=== PATIENT | female | born 1970 | race African-American/Black ===

== ENCOUNTER 2019-10-30 15:30 | Inpatient (IN) | payer OTHER ==
[2019-10-30 19:16] VITALS: BMI 36.6
--- NOTE | 2019-10-30 20:14 | HP ---
CIWA Score - Admission Criteria OASAS Guidelines: Admission for Medically Managed Detox: Requires at least one of the followin. CIWA greater than 12 2. Seizures within the past 24 hours 3. Delirium tremens within the past 24 hours 4. Hallucinations within the past 24 hours 5. Acute intervention needed for co occurring medical disorder 6. Acute intervention needed for co occurring psychiatric disorder 7. Severe withdrawal that cannot be handled at a lower level of care (continued vomiting, continued diarrhea, abnormal vital signs) requiring intravenous medication and/or fluids 8. Admitting History and Physical - Past Medical History ...LMP: 07/28/16 ...: No - Smoking History Smoking history: Current every day smoker Have you smoked in the past 12 months: Yes Aproximately how many cigarettes per day: 5 - Alcohol/Substance Use Hx Alcohol Use: Yes (reports drinking since 15 yo,1/2 pint of vodka,6 packs of 12 oz beer daily) Admission [facility] Chief Complaint: here for rehab from alcohol and crack use Allergies/Adverse Reactions: Allergies Allergy/AdvReac Type Severity Reaction Status Date / Time No Known Allergies Allergy Verified 10/30/19 19:05 History of Present Illness: 49 yo with h/o depression, bipolar and glaucoma completed detox at [facility] and was at [facility] left [place] about 1 week ago for an eye doctor appointment. She is here to complete rehab. Pt states she has not being using alcohol or other illicit drugs since leaving detox. PCP and MH- [facility] [address] Lives in [place] with mother. Does not work- on disability for glaucoma alcohol- was using 10 cans of beer/day crack- $60-70/day Utocx- pos for BZO DUR- no recent meds - Ebola screening Have you traveled outside of the country in the last 21 days: No Have you had contact with anyone from an Ebola affected area: No Have you been sick,other than usual withdrawal symptoms: No Do you have a fever: No - Review of Systems Constitutional: No Symptoms Reported EENT: reports: No Symptoms Reported Respiratory: reports: No Symptoms reported Cardiac: reports: No Symptoms Reported GI: reports: No Symptoms Reported : reports: No Symptoms Reported Musculoskeletal: reports: No Symptoms Reported Integumentary: reports: No Symptoms Reported Neuro: reports: No Symptoms reported Endocrine: reports: No Symptoms Reported Hematology: reports: No Symptoms Reported Psychiatric: reports: No Sypmtoms Reported Other Systems: Reviewed and Negative Patient History - Patient Medical History Hx Anemia: No Hx Asthma: No Hx Chronic Obstructive Pulmonary Disease (COPD): No Hx Cancer: No Hx Cardiac Disorders: No Hx Congestive Heart Failure: No Hx Hypertension: No Hx Hypercholesterolemia: No Hx Pacemaker: No HX Cerebrovascular Accident: No Hx Seizures: No Hx Dementia: No Hx Diabetes: No Hx Gastrointestinal Disorders: No Hx Liver Disease: No Hx Genitourinary Disorders: No Hx Sexually Transmitted Disorders: No Hx Renal Disease (ESRD): No Hx Thyroid Disease: No Hx Human Immunodeficiency Virus (HIV): No (last 08/05 nrgative) Hx Hepatitis C: No Hx Depression: Yes Hx Suicide Attempt: No Hx Bipolar Disorder: Yes Hx Schizophrenia: No Other Medical History: glaucoma - Patient Surgical History Past Surgical History: No Hx Neurologic Surgery: No Hx Cataract Extraction: No Hx Cardiac Surgery: No Hx Lung Surgery: No Hx Breast Surgery: No Hx Breast Biopsy: No Hx Abdominal Surgery: No Hx Appendectomy: No Hx Cholecystectomy: No Hx Genitourinary Surgery: No Hx Section: No Hx Orthopedic Surgery: Yes (arthrosopic surgery of right and left knee ) Other Surgical History: Glaucoma 2014 Anesthesia Reaction: No - PPD History Previous Implant?: Yes Documented Results: Negative w/o proof Date: 08/08/16 - Reproductive History Last Menstrual Period: 07/28/16 Patient : No - Smoking Cessation Smoking history: Current every day smoker Have you smoked in the past 12 months: Yes Aproximately how many cigarettes per day: 5 Cigars Per Day: 0 Hx Chewing Tobacco Use: No Initiated information on smoking cessation: Yes 'Breaking Loose' booklet given: 10/30/19 - Substances abused Alcohol Substance route: Oral Frequency: Daily Amount used: 7 (16oz) cans Age of first use: 13 Date of last use: 10/02/19 Crack Substance route: Smoking Frequency: Daily Amount used: $70 Age of first use: 28 Date of last use: 10/02/19 Admission Physical Exam BHS - Vital Signs Vital Signs: Vital Signs - 24 hr 10/30/19 19:13 Temperature 98.0 F Pulse Rate 67 Respiratory 16 Rate Blood Pressure 141/95 - Physical General Appearance: Yes: Within Normal Limits, Other HEENTM: Yes: Within Normal Limits, NICOLASA, Pharynx Normal Respiratory: Yes: Within Normal Limits, Lungs Clear Neck: Yes: Within Normal Limits Cardiology: Yes: Within Normal Limits, Regular Rhythm, Regular Rate Abdominal: Yes: Within Normal Limits, Protuberent Back: Yes: Within Normal Limits, Normal Inspection Musculoskeletal: Yes: Within Normal Limits, full range of Motion Extremities: Yes: Within Normal Limits, Normal Capillary Refill Neurological: Yes: Within Normal Limits, court commissioner II-XII NML intact, Fully Oriented Integumentary: Yes: Within Normal Limits, Normal Color Lymphatic: Yes: Within Normal Limits - Diagnostic (1) Bipolar 1 disorder Current Visit: Yes Status: Acute (2) Depression Current Visit: No Status: Acute (3) Alcohol dependence Current Visit: No Status: Chronic (4) Cocaine dependence Current Visit: No Status: Chronic (5) Glaucoma Current Visit: No Status: Chronic Breathalyzer - Breathalyzer Breathalyzer: 0 Urine Drug Screen - Test Device Lot number: [id number] Expiration date: 08/19/21 - Control Is test valid?: Yes - Results Drug screen NEGATIVE: No Urine drug screen results: BZO-Benzodiazepines Inpatient Rehab Admission - Rehab Decision to Admit Inpatient rehab admission?: Yes - Initial Determination Are CD services needed?: Yes Free of communicable disease: Yes Not in need of hospitalization: Yes - Rehab Admission Criteria Previous failed treatment: Yes Poor recovery environment: Yes Comorbidities: Yes Lacks judgement: Yes Patient is meeting Inpatient Rehab admission criteria:: Yes (completed detox)
[2019-10-30] MEDS ORDERED: P-EPHED 60MG/TRIPROLIDI 2.5MG TABLET PO PRN (20:21)
[2019-10-30] MEDS ORDERED: MENTHOL/PHENOL 1 EACH UD MM PRN (20:21)
[2019-10-30] MEDS ORDERED: hydrOXYzine PAMOATE 25 MG CAPSULE (FP) PO PRN (20:21)
[2019-10-30] MEDS ORDERED: NICOTINE POLACRILEX 2 MG GUM BC PRN (20:21)
[2019-10-30] MEDS ORDERED: guaiFENesin 200 MG/10 ML 10 ML UNIT-DOSE CUPS PO PRN (20:21)
[2019-10-30] MEDS ORDERED: LOPERAMIDE HCL 2 MG CAPSULE PO PRN (20:21)
[2019-10-30] MEDS ORDERED: ACETAMINOPHEN 325 MG TABLET (FP) PO PRN (20:21)
[2019-10-30] MEDS ORDERED: IBUPROFEN 400 MG TABLET (FP) PO PRN (20:21)
[2019-10-30] MEDS ORDERED: MAGNESIUM CITRATE 300 ML BOTTLE PO PRN (20:21)
[2019-10-30] MEDS ORDERED: MAG HYDROX/AL HYDROX/SIMETH 30 ML UNIT-DOSE CUP PO PRN (20:21)
[2019-10-30] MEDS ORDERED: MAGNESIUM HYDROX 2400MG/30ML ORAL SUSPENSION 30 ML CUP PO PRN (20:21)
[2019-10-30] MEDS ORDERED: LATANOPROST 0.005% OPHTH SOLN 2.5ML BOTTLE OU SCH (22:00)
[2019-10-30] MEDS ORDERED: QUEtiapine FUMARATE 100 MG TABLET (FP) PO SCH (22:00)
[2019-10-30] MEDS: THIAMINE HCL 100 MG TABLET (FP) PO SCH (22:38)
[2019-10-30] MEDS: PATIENT'S OWN MEDICATION (NON-FORMULARY) (Dorzolamide Hcl/Timolol Maleat [Cosopt Eye Drops OU SCH (22:45)
[2019-10-30] MEDS: NETARSUDIL MESYLATE OU SCH (22:46)
[2019-10-31] MEDS: BRIMONIDINE TARTRATE 0.1% OPHTHALMIC 5 ML BOTTLE OU SCH ×2 (00:07→06:59)
[2019-10-31] MEDS: PRENATAL VITAMINS W/ FOLIC ACID TABLET (FP) PO SCH (09:46)
[2019-10-31] MEDS ORDERED: ESCITALOPRAM OXALATE 20 MG TABLET PO SCH (10:00)
[2019-10-31] MEDS ORDERED: DIVALPROEX SODIUM 500 MG TABLET E.C. PO SCH (10:00)
[2019-10-31] MEDS ORDERED: COLLOIDAL OATMEAL 1 BAR EACH TP PRN (10:11)
--- NOTE | 2019-10-31 10:11 | PN ---
S Progress Note (SOAP) Subjective: patient admitted to rehab last night (10/30/2019). Requesting something for dry skin. PMHx;49 yo with h/o depression, bipolar and glaucoma completed detox at [facility] and was at [facility] rehab left [place] about 1 week ago for an eye doctor appointment. She is here to complete rehab. Pt states she has not being using alcohol or other illicit drugs since leaving detox. PCP and - [facility] [address] Lives in [place] with mother. Does not work- on disability for glaucoma alcohol- was using 10 cans of beer/day crack- $60-70/day Objective: General: no apparent distress HEENTM: normocephalic, dentures Neck: supple Lungs: clear Heart: s1 s2 ABD: +BS MSK: full weight bearing, steady gait. 10/31/19 10:08 Assessment: Admitted for rehab treatment for ETOH and crack cocaine. Dry skin On Depakote 10/31/19 10:08 Plan: Reviewed medication list with patient, reviewed problem list, reviewed previous admission. Rehab from cocaine and ETOH maintain safety Ordered Aveeno soap and lac-hydrin Ordered Depakote level
[2019-10-31] MEDS: PATIENT'S OWN MEDICATION (NON-FORMULARY) (Dorzolamide Hcl/Timolol Maleat [Cosopt Eye Drops OU SCH ×2 (10:37→15:45)
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
[2019-10-31] MEDS ORDERED: PT OWN MED DRAWER 7, Y5N ONE ×5 (11:30→19:27)
--- NOTE | 2019-10-31 13:04 | EKG ---
Test Reason : Blood Pressure : / mmHG Vent. Rate : 065 BPM Atrial Rate : 065 BPM P-R Int : 152 ms QRS Dur : 086 ms QT Int : 408 ms P-R-T Axes : 027 051 051 degrees QTc Int : 424 ms NORMAL SINUS RHYTHM NORMAL ECG NO PREVIOUS ECGS AVAILABLE Confirmed by Alexys Torres MD ([id number]) on 10/31/2019 1:04:32 PM Referred By: Confirmed By:Alexys Torres MD
[2019-10-31] MEDS ORDERED: BRIMONIDINE TARTRATE OU SCH (14:00)
[2019-10-31] MEDS: AMMONIUM LACTATE 12% LOTION 225 GM BOTTLE TP PRN (15:46)
[2019-10-31 20:27] LABS: HEMATOCRIT 40.4 % (32.4-45.2); HEMOGLOBIN 12.9 GM/dL (10.7-15.3); MCH 25.8 pg (25.7-33.7); MEAN CELL VOLUME 80.6 fl (80-96); MEAN PLT VOLUME 8.7 fl (7.5-11.1); PLATELET COUNT 260 K/MM3 (134-434); RBC 5.01 M/mm3 (3.60-5.2); RDW 16.5 % (11.6-15.6); WHITE BLOOD COUNT 11.6 K/mm3 (4.0-10.0)
[2019-10-31 20:30] LABS: ALBUMIN 3.8 g/dl (3.4-5.0); BILIRUBIN,TOTAL 0.2 mg/dL (0.2-1); BLOOD UREA NITROGEN 13.7 mg/dL (7-18); CALCIUM 8.6 mg/dL (8.5-10.1); POTASSIUM 4.1 mmol/L (3.5-5.1); TOT PROT 7.2 g/dl (6.4-8.2)
[2019-10-31] MEDS: THIAMINE HCL 100 MG TABLET (FP) PO SCH (21:28)
[2019-10-31] MEDS: QUEtiapine FUMARATE 300 MG TABLET PO SCH (21:28)
[2019-10-31] MEDS: NETARSUDIL MESYLATE OU SCH (21:29)
[2019-10-31] MEDS: BRIMONIDINE TARTRATE 0.2% OPHTHALMIC 5 ML BOTTLE OU SCH (21:30)
[2019-10-31] MEDS: LATANOPROST 0.005% OPHTH SOLN 2.5ML BOTTLE OU SCH (21:33)
[2019-10-31 21:50] LABS: EPI CELLS 6.5 /HPF (0-5/HPF); HYALINE CASTS 7 /lpf (0-8); PH,URINE 5.5 (5.0-8.0); URINE APPEARANCE CLEAR; URINE BACTERIA 74.2 /hpf (NEGATIVE); URINE BILIRUBIN NEGATIVE (NEGATIVE); URINE COLOR YELLOW; URINE GLUCOSE (UA) NEGATIVE (NEGATIVE); URINE KETONE NEGATIVE (NEGATIVE); URINE LEUK ESTERASE 2+ (NEGATIVE); URINE NITRITE NEGATIVE (NEGATIVE); URINE PROTEIN NEGATIVE (NEGATIVE); URINE RBC 5 /hpf (0-4); URINE UROBILINOGEN 0.2 mg/dL (0.2-1.0); URINE WBC 37 /hpf (0-5)
[2019-11-01] MEDS ORDERED: DIVALPROEX NA *ER* EXTEND REL 500 MG TABLET.SA (FP) PO SCH (10:00)
[2019-11-01] MEDS: BRIMONIDINE TARTRATE 0.2% OPHTHALMIC 5 ML BOTTLE OU SCH ×3 (10:05→21:22)
[2019-11-01] MEDS: PATIENT'S OWN MEDICATION (NON-FORMULARY) (Dorzolamide Hcl/Timolol Maleat [Cosopt Eye Drops OU SCH ×2 (10:06→13:53)
[2019-11-01] MEDS: PRENATAL VITAMINS W/ FOLIC ACID TABLET (FP) PO SCH (10:07)
[2019-11-01] MEDS: ESCITALOPRAM OXALATE 20 MG TABLET PO SCH (10:07)
--- NOTE | 2019-11-01 13:26 | PN ---
[facility] Progress Note Note: Patient's Valproic serum level is 4.2. She is currently on depakote 500 mg/hs started a week prior to this admission while in inpatient rehab [facility]. Depakote ER dosage will be increased to 1000 mg/hs
[2019-11-01] MEDS ORDERED: PT OWN MED DRAWER 7, Y5N ONE (13:56)
[2019-11-01] MEDS: LATANOPROST 0.005% OPHTH SOLN 2.5ML BOTTLE OU SCH (21:22)
[2019-11-01] MEDS: NETARSUDIL MESYLATE OU SCH (21:23)
[2019-11-01] MEDS: THIAMINE HCL 100 MG TABLET (FP) PO SCH (21:23)
[2019-11-01] MEDS: DIVALPROEX NA *ER* EXTEND REL 500 MG TABLET.SA (FP) PO SCH (21:23)
[2019-11-01] MEDS: QUEtiapine FUMARATE 300 MG TABLET PO SCH (21:23)
[2019-11-02] MEDS: BRIMONIDINE TARTRATE 0.2% OPHTHALMIC 5 ML BOTTLE OU SCH ×3 (10:06→21:18)
[2019-11-02] MEDS: ESCITALOPRAM OXALATE 20 MG TABLET PO SCH (10:07)
[2019-11-02] MEDS: PATIENT'S OWN MEDICATION (NON-FORMULARY) (Dorzolamide Hcl/Timolol Maleat [Cosopt Eye Drops OU SCH ×2 (10:07→14:06)
[2019-11-02] MEDS: PRENATAL VITAMINS W/ FOLIC ACID TABLET (FP) PO SCH (10:07)
[2019-11-02] MEDS: AMMONIUM LACTATE 12% LOTION 225 GM BOTTLE TP PRN (10:08)
[2019-11-02] MEDS ORDERED: PT OWN MED DRAWER 7, Y5N ONE ×2 (10:08→14:13)
[2019-11-02] MEDS: DIVALPROEX NA *ER* EXTEND REL 500 MG TABLET.SA (FP) PO SCH (21:18)
[2019-11-02] MEDS: NETARSUDIL MESYLATE OU SCH (21:19)
[2019-11-02] MEDS: THIAMINE HCL 100 MG TABLET (FP) PO SCH (21:19)
[2019-11-02] MEDS: QUEtiapine FUMARATE 300 MG TABLET PO SCH (21:20)
[2019-11-02] MEDS: LATANOPROST 0.005% OPHTH SOLN 2.5ML BOTTLE OU SCH (21:20)
[2019-11-03] MEDS: ESCITALOPRAM OXALATE 20 MG TABLET PO SCH (09:40)
[2019-11-03] MEDS: BRIMONIDINE TARTRATE 0.2% OPHTHALMIC 5 ML BOTTLE OU SCH ×3 (09:40→21:31)
[2019-11-03] MEDS: PRENATAL VITAMINS W/ FOLIC ACID TABLET (FP) PO SCH (09:40)
[2019-11-03] MEDS: PATIENT'S OWN MEDICATION (NON-FORMULARY) (Dorzolamide Hcl/Timolol Maleat [Cosopt Eye Drops OU SCH ×2 (09:41→13:14)
[2019-11-03] MEDS ORDERED: PT OWN MED DRAWER 7, Y5N ONE ×2 (13:08→15:21)
[2019-11-03] MEDS: NETARSUDIL MESYLATE OU SCH (21:31)
[2019-11-03] MEDS: THIAMINE HCL 100 MG TABLET (FP) PO SCH (21:33)
[2019-11-03] MEDS: LATANOPROST 0.005% OPHTH SOLN 2.5ML BOTTLE OU SCH (21:33)
[2019-11-03] MEDS: QUEtiapine FUMARATE 300 MG TABLET PO SCH (21:34)
[2019-11-03] MEDS: DIVALPROEX NA *ER* EXTEND REL 500 MG TABLET.SA (FP) PO SCH (21:34)
[2019-11-04] MEDS ORDERED: PT OWN MED DRAWER 7, Y5N ONE ×3 (09:23→19:27)
[2019-11-04] MEDS: BRIMONIDINE TARTRATE 0.2% OPHTHALMIC 5 ML BOTTLE OU SCH ×3 (10:29→21:03)
[2019-11-04] MEDS: PATIENT'S OWN MEDICATION (NON-FORMULARY) (Dorzolamide Hcl/Timolol Maleat [Cosopt Eye Drops OU SCH ×2 (10:30→13:43)
[2019-11-04] MEDS: ESCITALOPRAM OXALATE 20 MG TABLET PO SCH (10:30)
[2019-11-04] MEDS: PRENATAL VITAMINS W/ FOLIC ACID TABLET (FP) PO SCH (10:30)
[2019-11-04] MEDS: NETARSUDIL MESYLATE OU SCH (21:02)
[2019-11-04] MEDS: LATANOPROST 0.005% OPHTH SOLN 2.5ML BOTTLE OU SCH (21:03)
[2019-11-04] MEDS: THIAMINE HCL 100 MG TABLET (FP) PO SCH (21:03)
[2019-11-04] MEDS: DIVALPROEX NA *ER* EXTEND REL 500 MG TABLET.SA (FP) PO SCH (21:04)
[2019-11-04] MEDS: QUEtiapine FUMARATE 300 MG TABLET PO SCH (21:04)
[2019-11-05] MEDS: BRIMONIDINE TARTRATE 0.2% OPHTHALMIC 5 ML BOTTLE OU SCH ×3 (10:33→21:25)
[2019-11-05] MEDS: PRENATAL VITAMINS W/ FOLIC ACID TABLET (FP) PO SCH (10:33)
[2019-11-05] MEDS: ESCITALOPRAM OXALATE 20 MG TABLET PO SCH (10:33)
[2019-11-05] MEDS: PATIENT'S OWN MEDICATION (NON-FORMULARY) (Dorzolamide Hcl/Timolol Maleat [Cosopt Eye Drops OU SCH ×2 (10:34→14:08)
[2019-11-05] MEDS: NETARSUDIL MESYLATE OU SCH (21:24)
[2019-11-05] MEDS: DIVALPROEX NA *ER* EXTEND REL 500 MG TABLET.SA (FP) PO SCH (21:25)
[2019-11-05] MEDS: LATANOPROST 0.005% OPHTH SOLN 2.5ML BOTTLE OU SCH (21:26)
[2019-11-05] MEDS: QUEtiapine FUMARATE 300 MG TABLET PO SCH (21:26)
[2019-11-05] MEDS: THIAMINE HCL 100 MG TABLET (FP) PO SCH (21:26)
[2019-11-06] MEDS: BRIMONIDINE TARTRATE 0.2% OPHTHALMIC 5 ML BOTTLE OU SCH ×3 (10:24→21:12)
[2019-11-06] MEDS: ESCITALOPRAM OXALATE 20 MG TABLET PO SCH (10:25)
[2019-11-06] MEDS: PRENATAL VITAMINS W/ FOLIC ACID TABLET (FP) PO SCH (10:25)
[2019-11-06] MEDS: PATIENT'S OWN MEDICATION (NON-FORMULARY) (Dorzolamide Hcl/Timolol Maleat [Cosopt Eye Drops OU SCH ×2 (10:26→14:12)
[2019-11-06] MEDS ORDERED: PT OWN MED DRAWER 7, Y5N ONE ×5 (14:14→21:56)
[2019-11-06] MEDS: THIAMINE HCL 100 MG TABLET (FP) PO SCH (21:10)
[2019-11-06] MEDS: DIVALPROEX NA *ER* EXTEND REL 500 MG TABLET.SA (FP) PO SCH (21:13)
[2019-11-06] MEDS: QUEtiapine FUMARATE 300 MG TABLET PO SCH (21:14)
[2019-11-06] MEDS: LATANOPROST 0.005% OPHTH SOLN 2.5ML BOTTLE OU SCH (21:14)
[2019-11-06] MEDS: NETARSUDIL MESYLATE OU SCH (22:14)
[2019-11-07] MEDS ORDERED: PT OWN MED DRAWER 7, Y5N ONE ×3 (09:00→19:27)
[2019-11-07] MEDS: PATIENT'S OWN MEDICATION (NON-FORMULARY) (Dorzolamide Hcl/Timolol Maleat [Cosopt Eye Drops OU SCH ×2 (10:30→14:40)
[2019-11-07] MEDS: BRIMONIDINE TARTRATE 0.2% OPHTHALMIC 5 ML BOTTLE OU SCH ×3 (10:30→21:18)
[2019-11-07] MEDS: ESCITALOPRAM OXALATE 20 MG TABLET PO SCH (10:30)
[2019-11-07] MEDS: PRENATAL VITAMINS W/ FOLIC ACID TABLET (FP) PO SCH (10:30)
[2019-11-07] MEDS: AMMONIUM LACTATE 12% LOTION 225 GM BOTTLE TP PRN (10:32)
[2019-11-07] MEDS: DIVALPROEX NA *ER* EXTEND REL 500 MG TABLET.SA (FP) PO SCH (21:18)
[2019-11-07] MEDS: MELATONIN 5 MG TABLETS PO PRN (21:19)
[2019-11-07] MEDS: THIAMINE HCL 100 MG TABLET (FP) PO SCH (21:19)
[2019-11-07] MEDS: QUEtiapine FUMARATE 300 MG TABLET PO SCH (21:19)
[2019-11-07] MEDS: LATANOPROST 0.005% OPHTH SOLN 2.5ML BOTTLE OU SCH (21:20)
[2019-11-07] MEDS: NETARSUDIL MESYLATE OU SCH (21:20)
[2019-11-08] MEDS ORDERED: PT OWN MED DRAWER 7, Y5N ONE ×4 (08:36→21:51)
[2019-11-08] MEDS: ESCITALOPRAM OXALATE 20 MG TABLET PO SCH (10:18)
[2019-11-08] MEDS: PRENATAL VITAMINS W/ FOLIC ACID TABLET (FP) PO SCH (10:18)
[2019-11-08] MEDS: BRIMONIDINE TARTRATE 0.2% OPHTHALMIC 5 ML BOTTLE OU SCH ×3 (10:19→21:06)
[2019-11-08] MEDS: PATIENT'S OWN MEDICATION (NON-FORMULARY) (Dorzolamide Hcl/Timolol Maleat [Cosopt Eye Drops OU SCH ×2 (10:20→14:01)
--- NOTE | 2019-11-08 10:55 | DS ---
[facility] Rehab Discharge Summary - [facility] Rehab Discharge Summary Admission Date: 10/30/19 Discharge Date: 11/09/19 - History Present History: Alcohol dependence, Cannabis dependence, Cocaine dependence Additional Comments: Pt is a 49 y/o female with a hx of TALON admitted to rehab and scheduled for discharge tomorrow 11/09/19 after completion of rehab. Pt has been referred for CD aftercare at [facility] Out Patient program to follow up. Pt reports she has primary care provider with [facility] on [address] [place], [place]. Pertinent Past History: Glaucoma Depression - Discharge Physical Exam Vital Signs: Vital Signs Temperature 97.7 F 11/08/19 06:32 Pulse Rate 73 11/08/19 06:32 Respiratory Rate 18 11/08/19 06:32 Blood Pressure 97/66 11/08/19 06:32 O2 Sat by Pulse Oximetry (%) Alert o x 3 nad oob ambulating with steady gait Cardiac:s1 s2, rrr lungs:cta,jenise. Abdomen:+bs,soft,nt,++fatty extremities/skin:skin intact;no edema Pertinent Admission Physical Exam Findings: Laboratory Tests 10/31/19 10/31/19 10/31/19 08:20 08:20 08:20 WBC 11.6 H RBC 5.01 Hgb 12.9 Hct 40.4 MCV 80.6 MCH 25.8 MCHC 32.0 RDW 16.5 H Plt Count 260 MPV 8.7 D Sodium 138 Potassium 4.1 Chloride 108 H Carbon Dioxide 21 Anion Gap 10 BUN 13.7 Creatinine 1.0 Est GFR (CKD-EPI)AfAm 76.07 Est GFR (CKD-EPI)NonAf 65.64 Random Glucose 125 H Calcium 8.6 Total Bilirubin 0.2 AST 24 ALT 40 Alkaline Phosphatase 95 Total Protein 7.2 Albumin 3.8 Urine Color Urine Appearance Urine pH Ur Specific [place] Urine Protein Urine Glucose (UA) Urine Ketones Urine Blood Urine Nitrite Urine Bilirubin Urine Urobilinogen Ur Leukocyte Esterase Urine WBC (Auto) Urine RBC (Auto) Urine Casts (Auto) U Epithel Cells (Auto) Urine Bacteria (Auto) Valproic Acid RPR Titer Nonreactive HIV 1&2 Ag/Ab, 4th Gen HIV 1&2 Antibody Screen HIV P24 Antigen 10/31/19 10/31/19 10/31/19 08:20 08:20 08:30 WBC RBC Hgb Hct MCV MCH MCHC RDW Plt Count MPV Sodium Potassium Chloride Carbon Dioxide Anion Gap BUN Creatinine Est GFR (CKD-EPI)AfAm Est GFR (CKD-EPI)NonAf Random Glucose Calcium Total Bilirubin AST ALT Alkaline Phosphatase Total Protein Albumin Urine Color Yellow Urine Appearance Clear Urine pH 5.5 Ur Specific [place] 1.025 Urine Protein Negative Urine Glucose (UA) Negative Urine Ketones Negative Urine Blood Negative Urine Nitrite Negative Urine Bilirubin Negative Urine Urobilinogen 0.2 Ur Leukocyte Esterase 2+ H Urine WBC (Auto) 37 Urine RBC (Auto) 5 Urine Casts (Auto) 7 U Epithel Cells (Auto) 6.5 Urine Bacteria (Auto) 74.2 Valproic Acid RPR Titer HIV 1&2 Ag/Ab, 4th Gen Non reactive HIV 1&2 Antibody Screen Cancelled HIV P24 Antigen Cancelled 10/31/19 11/07/19 10:20 11:00 WBC RBC Hgb Hct MCV MCH MCHC RDW Plt Count MPV Sodium Potassium Chloride Carbon Dioxide Anion Gap BUN Creatinine Est GFR (CKD-EPI)AfAm Est GFR (CKD-EPI)NonAf Random Glucose Calcium Total Bilirubin AST ALT Alkaline Phosphatase Total Protein Albumin Urine Color Urine Appearance Urine pH Ur Specific [place] Urine Protein Urine Glucose (UA) Urine Ketones Urine Blood Urine Nitrite Urine Bilirubin Urine Urobilinogen Ur Leukocyte Esterase Urine WBC (Auto) Urine RBC (Auto) Urine Casts (Auto) U Epithel Cells (Auto) Urine Bacteria (Auto) Valproic Acid 4.2 L 88.1 RPR Titer HIV 1&2 Ag/Ab, 4th Gen HIV 1&2 Antibody Screen HIV P24 Antigen - Treatment Discharge Condition: Discharge condition good Hospital Course: Rehabilitated safely Responded well CD aftercare referral accepted participated in groups and individual sessions while in treatment. - Medication Discharge Medications: Ambulatory Orders Brimonidine Tartrate [Alphagan P 0.1% -] 1 drop OU TID #1 drops 08/31/16 Dorzolamide HCl/Timolol Maleat [Cosopt Eye Drops] 1 drop OU BID #1 drops Netarsudil Mesylate [Rhopressa] 2.5 ml OP HS 10/30/19 Divalproex *ER* [Depakote *ER* -] 1,000 mg PO HS #60 tablet.sa 11/08/19 Escitalopram Oxalate [Lexapro -] 20 mg PO DAILY #30 tablet 11/08/19 Quetiapine Fumarate [Seroquel -] 300 mg PO HS #30 tablet 11/08/19 - Medication-Assisted Treatment (MAT) Medication-Assisted Treatment (MAT): No - Discharge Instructions Diet, activity, other medical instructions: Diet:Regular Activity: oob ad rafita Other medical instructions:follow up with CD aftercare as scheduled. follow up with primary care at [facility] within 1-2 weeks after discharge. - Diagnosis (1) Alcohol dependence Current Visit: Yes Status: Chronic Qualifiers: Substance use status: uncomplicated Qualified Code(s): F10.20 - Alcohol dependence, uncomplicated (2) Cocaine dependence Current Visit: Yes Status: Chronic Qualifiers: Substance use status: uncomplicated Qualified Code(s): F14.20 - Cocaine dependence, uncomplicated (3) Glaucoma Current Visit: Yes Status: Chronic Qualifiers: Primary angle closure glaucoma type: unspecified type Laterality: bilateral - Follow-up Referral Minutes to complete discharge: 25 - AMA Did Patient Leave Against Medical Advice: No Additional Comments: Pt has own eye drops/Refills on package.
--- NOTE | 2019-11-08 11:42 | PN ---
[facility] Progress Note Note: Patient is scheduled for discharge tomorrow. Scripts for 30 days supply of medications(Lexapro 20 mg/day, Seroquel 300 mg/hs, Depakote ER 1000 mg/hs) will be electronically transmitted to [facility] at [address] [place], [place] [id number]
[2019-11-08] MEDS: MELATONIN 5 MG TABLETS PO PRN (21:05)
[2019-11-08] MEDS: THIAMINE HCL 100 MG TABLET (FP) PO SCH (21:05)
[2019-11-08] MEDS: LATANOPROST 0.005% OPHTH SOLN 2.5ML BOTTLE OU SCH (21:06)
[2019-11-08] MEDS: NETARSUDIL MESYLATE OU SCH (21:06)
[2019-11-08] MEDS: QUEtiapine FUMARATE 300 MG TABLET PO SCH (21:06)
[2019-11-08] MEDS: DIVALPROEX NA *ER* EXTEND REL 500 MG TABLET.SA (FP) PO SCH (21:07)
[2019-11-09] MEDS ORDERED: PT OWN MED DRAWER 7, Y5N ONE ×2 (01:19→10:55)
[2019-11-09 07:13] VITALS: BP 110/74; PULSE 86; TEMP 97.3
[2019-11-09] MEDS: BRIMONIDINE TARTRATE 0.2% OPHTHALMIC 5 ML BOTTLE OU SCH (09:02)
[2019-11-09] MEDS: PATIENT'S OWN MEDICATION (NON-FORMULARY) (Dorzolamide Hcl/Timolol Maleat [Cosopt Eye Drops OU SCH (09:02)
[2019-11-09] MEDS: PRENATAL VITAMINS W/ FOLIC ACID TABLET (FP) PO SCH (09:02)
[2019-11-09] MEDS: ESCITALOPRAM OXALATE 20 MG TABLET PO SCH (09:03)
--- NOTE | 2019-11-09 09:48 | PN ---
S Progress Note Note: Pt is discharged today as scheduled. Vital Signs - 24 hr 11/09/19 11/09/19 11/09/19 00:34 03:32 06:30 Temperature 97.3 F L Pulse Rate 86 Respiratory 18 18 18 Rate Blood Pressure 110/74 Alert o x 3,denies s/h/i nad oob ambulating with steady gait A/P Medically stable D/c pt today Follow up with Cd aftercare recommendation as [id number] Discharge Summary) Follow up with primary care provider as discussed.
== END 2019-11-09 09:38 | disposition home or self-care (01) | DRG 895 ==
LOC: YASAS 15:30 → Y3E 20:50
PROVIDERS: ADMIT Allergy & Immunology; ATTEND Allergy & Immunology
PROC: HZ42ZZZ Group Counseling for Substance Abuse Treatment, Cognitive-Behavioral (ICD-10-PCS; principal; 2019-10-30)
DX: F10.20 Alcohol dependence, uncomplicated (principal); F14.20 Cocaine dependence, uncomplicated; F17.210 Nicotine dependence, cigarettes, uncomplicated; F31.9 Bipolar disorder, unspecified; H40.9 Unspecified glaucoma
CPT/HCPCS: 36415; 80053; 80164; 81003; 85027; 86593; 87389; 93005; 93010

== ENCOUNTER 2023-09-26 22:19 | Inpatient (IN) | payer OTHER ==
[2023-09-26 23:02] VITALS: BMI 33.9
[2023-09-26] MEDS ORDERED: BISMUTH SUBSALICYLATE 524 MG/30 ML PO PRN (23:56)
[2023-09-26] MEDS ORDERED: IBUPROFEN 400 MG TABLET (FP) PO PRN (23:56)
[2023-09-26] MEDS ORDERED: BENZOCAINE/MENTHOL (CHLORASEPTIC ) LOZENGE MM PRN (23:56)
[2023-09-26] MEDS ORDERED: NICOTINE POLACRILEX 2 MG GUM BUC PRN (23:56)
[2023-09-26] MEDS ORDERED: ONDANSETRON *ODT* 4 MG TABLET SL PRN (23:56)
[2023-09-26] MEDS ORDERED: DICYCLOMINE HCL 10 MG CAPSULE PO PRN (23:56)
[2023-09-26] MEDS ORDERED: IBUPROFEN 600 MG TABLET (FP) PO PRN (23:56)
[2023-09-26] MEDS ORDERED: POLYETHYLENE GLYCOL (HEALTHYLAX) 3350 17 GM PACKET PO PRN (23:56)
[2023-09-26] MEDS ORDERED: NALOXONE HCL 0.4 MG/ML VIAL IM PRN (23:56)
[2023-09-26] MEDS ORDERED: guaiFENesin 600 MG TABLET.ER (FP) PO PRN (23:56)
[2023-09-26] MEDS ORDERED: BENZONATATE 200 MG CAPSULE PO PRN (23:56)
[2023-09-26] MEDS ORDERED: MAG HYDROX/AL HYDROX/SIMETH 30 ML UNIT-DOSE CUP PO PRN (23:56)
[2023-09-26] MEDS ORDERED: LOPERAMIDE HCL 2 MG CAPSULE PO PRN (23:56)
[2023-09-26] MEDS ORDERED: MAGNESIUM HYDROX 2400MG/30ML ORAL SUSPENSION 30 ML CUP PO PRN (23:56)
[2023-09-26] MEDS ORDERED: ACETAMINOPHEN 325 MG TABLET (FP) PO PRN (23:56)
[2023-09-26] MEDS ORDERED: NALOXONE HCL (KLOXXADO) 8 MG SPRAY NS PRN (23:56)
[2023-09-26] MEDS ORDERED: hydrOXYzine PAMOATE 25 MG CAPSULE (FP) PO PRN (23:56)
[2023-09-27] MEDS: NICOTINE 7 MG/24 HOURS TOPICAL PATCH TD SCH (10:25)
[2023-09-27] MEDS: PRENATAL VITAMINS W/ FOLIC ACID TABLET (FP) PO SCH (10:26)
[2023-09-27] MEDS: diazePAM 5 MG TABLET PO SCH ×3 (10:27→22:37)
[2023-09-27 10:53] LABS: HEMATOCRIT 37.7 % (32.4-45.2); HEMOGLOBIN 12.1 GM/dL (10.7-15.3); MCH 25.3 pg (25.7-33.7); MEAN CELL VOLUME 79.1 fl (80-96); MEAN PLT VOLUME 7.6 fl (7.5-11.1); PLATELET COUNT 196 10^3/uL (134-434); RBC 4.77 M/mm3 (3.60-5.2); RDW 15.2 % (11.6-15.6); WHITE BLOOD COUNT 10.6 K/mm3 (4.0-10.0)
[2023-09-27] MEDS: DORZOLAMIDE 2% HCL OPHTHALMIC SOLUTION 10 ML BOTTLE OU SCH ×2 (10:56→22:37)
[2023-09-27] MEDS: TIMOLOL 0.5% OPHTHALMIC SOL 5 ML BOTTLE OU SCH ×2 (10:56→22:37)
[2023-09-27 10:57] LABS: CHLORIDE 108 mmol/L (98-107); POTASSIUM 3.7 mmol/L (3.5-5.1); SODIUM 144 mmol/L (136-145)
[2023-09-27 11:14] LABS: SGOT/AST 16 U/L (15-37)
[2023-09-27 11:16] LABS: CALCIUM 9.4 mg/dL (8.5-10.1)
[2023-09-27 11:17] LABS: ANION GAP 7 mmol/L (4-13); BLOOD UREA NITROGEN 10.2 mg/dL (7-18); CO2 29 mmol/L (21-32)
[2023-09-27 11:18] LABS: GLUCOSE,RANDOM 104 mg/dL (74-106)
[2023-09-27 11:20] LABS: SGPT/ALT 22 U/L (13-61)
[2023-09-27 11:21] LABS: CREATININE 0.7 mg/dL (0.55-1.3)
[2023-09-27 11:22] LABS: BILIRUBIN,TOTAL 0.1 mg/dL (0.2-1); TOT PROT 5.8 g/dl (6.4-8.2)
[2023-09-27 11:23] LABS: ALK PHOS 81 U/L (45-117)
[2023-09-27] MEDS ORDERED: ESCITALOPRAM OXALATE 10 MG TABLET ONE (11:45)
[2023-09-27] MEDS: ESCITALOPRAM OXALATE 20 MG TABLET PO SCH (11:46)
[2023-09-27] MEDS: BRIMONIDINE TARTRATE 0.1% OPHTHALMIC 5 ML BOTTLE OU SCH ×2 (13:55→22:37)
[2023-09-27] MEDS ORDERED: MELATONIN 5 MG TABLETS PO SCH (22:00)
[2023-09-27] MEDS: THIAMINE HCL 100 MG TABLET (FP) PO SCH (22:37)
[2023-09-27] MEDS: QUEtiapine FUMARATE 100 MG TABLET (FP) PO SCH (22:39)
[2023-09-28] MEDS: diazePAM 5 MG TABLET PO SCH ×3 (06:39→22:35)
[2023-09-28] MEDS: BRIMONIDINE TARTRATE 0.1% OPHTHALMIC 5 ML BOTTLE OU SCH ×3 (06:42→22:37)
[2023-09-28] MEDS ORDERED: ESCITALOPRAM OXALATE 10 MG TABLET ONE (09:36)
[2023-09-28] MEDS: PRENATAL VITAMINS W/ FOLIC ACID TABLET (FP) PO SCH (10:18)
[2023-09-28] MEDS: ESCITALOPRAM OXALATE 20 MG TABLET PO SCH (10:18)
[2023-09-28] MEDS: TIMOLOL 0.5% OPHTHALMIC SOL 5 ML BOTTLE OU SCH ×2 (10:19→22:36)
[2023-09-28] MEDS: DORZOLAMIDE 2% HCL OPHTHALMIC SOLUTION 10 ML BOTTLE OU SCH ×2 (10:19→22:36)
[2023-09-28] MEDS: NICOTINE 7 MG/24 HOURS TOPICAL PATCH TD SCH (10:20)
[2023-09-28] MEDS: THIAMINE HCL 100 MG TABLET (FP) PO SCH (22:35)
[2023-09-28] MEDS: QUEtiapine FUMARATE 100 MG TABLET (FP) PO SCH (22:37)
[2023-09-29] MEDS: diazePAM 5 MG TABLET PO SCH ×2 (06:00→17:41)
[2023-09-29] MEDS: BRIMONIDINE TARTRATE 0.1% OPHTHALMIC 5 ML BOTTLE OU SCH ×3 (06:28→22:57)
[2023-09-29] MEDS ORDERED: ESCITALOPRAM OXALATE 10 MG TABLET ONE (09:28)
[2023-09-29] MEDS: NICOTINE 7 MG/24 HOURS TOPICAL PATCH TD SCH (09:30)
[2023-09-29] MEDS: PRENATAL VITAMINS W/ FOLIC ACID TABLET (FP) PO SCH (09:30)
[2023-09-29] MEDS: DORZOLAMIDE 2% HCL OPHTHALMIC SOLUTION 10 ML BOTTLE OU SCH ×2 (09:30→22:58)
[2023-09-29] MEDS: ESCITALOPRAM OXALATE 20 MG TABLET PO SCH (09:30)
[2023-09-29] MEDS: TIMOLOL 0.5% OPHTHALMIC SOL 5 ML BOTTLE OU SCH ×2 (09:30→22:58)
[2023-09-29 13:49] LABS: PH,URINE 8.5 (5.0-8.0); URINE APPEARANCE CLEAR; URINE BILIRUBIN NEGATIVE (NEGATIVE); URINE COLOR YELLOW; URINE GLUCOSE (UA) NEGATIVE (NEGATIVE); URINE KETONE NEGATIVE (NEGATIVE); URINE LEUK ESTERASE NEGATIVE (NEGATIVE); URINE NITRITE NEGATIVE (NEGATIVE); URINE PROTEIN NEGATIVE (NEGATIVE); URINE UROBILINOGEN 0.2 mg/dL (0.2-1.0)
[2023-09-29] MEDS: QUEtiapine FUMARATE 100 MG TABLET (FP) PO SCH (22:57)
[2023-09-29] MEDS: THIAMINE HCL 100 MG TABLET (FP) PO SCH (23:59)
[2023-09-30] MEDS ORDERED: diazePAM 5 MG TABLET PO ONE (06:00)
[2023-09-30] MEDS: BRIMONIDINE TARTRATE 0.1% OPHTHALMIC 5 ML BOTTLE OU SCH (06:47)
[2023-09-30 07:01] VITALS: TEMP 97.7
[2023-09-30 09:14] VITALS: BP 147/75; PULSE 63; RESP 16
[2023-09-30] MEDS: PRENATAL VITAMINS W/ FOLIC ACID TABLET (FP) PO SCH (09:30)
[2023-09-30] MEDS: NICOTINE 7 MG/24 HOURS TOPICAL PATCH TD SCH (09:30)
[2023-09-30] MEDS: ESCITALOPRAM OXALATE 20 MG TABLET PO SCH (09:30)
[2023-09-30] MEDS: DORZOLAMIDE 2% HCL OPHTHALMIC SOLUTION 10 ML BOTTLE OU SCH (09:30)
[2023-09-30] MEDS: TIMOLOL 0.5% OPHTHALMIC SOL 5 ML BOTTLE OU SCH (09:30)
== END 2023-09-30 12:27 | disposition other institution (70) | DRG 897 ==
LOC: YASAS 22:19 → Y6N 23:09
PROVIDERS: ADMIT Allergy & Immunology; ATTEND Allergy & Immunology
PROC: HZ2ZZZZ Detoxification Services for Substance Abuse Treatment (ICD-10-PCS; principal; 2023-09-26)
DX: F10.230 Alcohol dependence with withdrawal, uncomplicated (principal); F14.20 Cocaine dependence, uncomplicated; Z59.00 Homelessness unspecified; F12.20 Cannabis dependence, uncomplicated; F17.213 Nicotine dependence, cigarettes, with withdrawal; F25.0 Schizoaffective disorder, bipolar type; F31.9 Bipolar disorder, unspecified; F19.94 Other psychoactive substance use, unspecified with psychoactive substance-induced mood disorder; F19.982 Other psychoactive substance use, unspecified with psychoactive substance-induced sleep disorder; H40.1130 Primary open-angle glaucoma, bilateral, stage unspecified; Z56.0 Unemployment, unspecified
CPT/HCPCS: 36415; 80053; 80305; 80307; 81003; 81025; 85027; 86780; 87635; 93005; 93010

== ENCOUNTER 2023-09-30 12:32 | Inpatient (IN) | payer OTHER ==
[~2023-09-30 12:32] MED LIST: ACETAMINOPHEN 325 MG TABLET (FP) PO PRN; BENZOCAINE/MENTHOL (CHLORASEPTIC ) LOZENGE MM PRN; BENZONATATE 200 MG CAPSULE PO PRN; COLLOIDAL OATMEAL 1 BAR EACH TP PRN; IBUPROFEN 400 MG TABLET (FP) PO PRN; IBUPROFEN 600 MG TABLET (FP) PO PRN; LOPERAMIDE HCL 2 MG CAPSULE PO PRN; MAGNESIUM HYDROX 2400MG/30ML ORAL SUSPENSION 30 ML CUP PO PRN; METHOCARBAMOL 500 MG TABLET PO PRN; NICOTINE POLACRILEX 2 MG GUM BUC PRN; POLYETHYLENE GLYCOL (HEALTHYLAX) 3350 17 GM PACKET PO PRN; guaiFENesin 600 MG TABLET.ER (FP) PO PRN
[2023-09-30] MEDS: BRIMONIDINE TARTRATE 0.1% OPHTHALMIC 5 ML BOTTLE OU SCH ×2 (14:45→21:45)
[2023-09-30] MEDS: TIMOLOL 0.5% OPHTHALMIC SOL 5 ML BOTTLE OU SCH (21:45)
[2023-09-30] MEDS: THIAMINE HCL 100 MG TABLET (FP) PO SCH (21:45)
[2023-09-30] MEDS: MELATONIN 5 MG TABLETS PO SCH (21:45)
[2023-09-30] MEDS: QUEtiapine FUMARATE 100 MG TABLET (FP) PO SCH (21:45)
[2023-09-30] MEDS: DORZOLAMIDE 2% HCL OPHTHALMIC SOLUTION 10 ML BOTTLE OU SCH (21:45)
[2023-10-01] MEDS: BRIMONIDINE TARTRATE 0.1% OPHTHALMIC 5 ML BOTTLE OU SCH ×3 (06:35→21:35)
[2023-10-01] MEDS: ESCITALOPRAM OXALATE 20 MG TABLET PO SCH (09:40)
[2023-10-01] MEDS: PRENATAL VITAMINS W/ FOLIC ACID TABLET (FP) PO SCH (09:41)
[2023-10-01] MEDS: DORZOLAMIDE 2% HCL OPHTHALMIC SOLUTION 10 ML BOTTLE OU SCH ×2 (09:41→21:36)
[2023-10-01] MEDS: NICOTINE 7 MG/24 HOURS TOPICAL PATCH TD SCH (09:41)
[2023-10-01] MEDS: TIMOLOL 0.5% OPHTHALMIC SOL 5 ML BOTTLE OU SCH ×2 (09:42→21:35)
[2023-10-01] MEDS: THIAMINE HCL 100 MG TABLET (FP) PO SCH (21:34)
[2023-10-01] MEDS: QUEtiapine FUMARATE 100 MG TABLET (FP) PO SCH (21:34)
[2023-10-01] MEDS: MELATONIN 5 MG TABLETS PO SCH (21:34)
[2023-10-02] MEDS: BRIMONIDINE TARTRATE 0.1% OPHTHALMIC 5 ML BOTTLE OU SCH ×3 (06:51→21:35)
[2023-10-02] MEDS: DORZOLAMIDE 2% HCL OPHTHALMIC SOLUTION 10 ML BOTTLE OU SCH ×2 (09:59→21:35)
[2023-10-02] MEDS: TIMOLOL 0.5% OPHTHALMIC SOL 5 ML BOTTLE OU SCH ×2 (09:59→21:35)
[2023-10-02] MEDS: PRENATAL VITAMINS W/ FOLIC ACID TABLET (FP) PO SCH (09:59)
[2023-10-02] MEDS: ESCITALOPRAM OXALATE 20 MG TABLET PO SCH (09:59)
[2023-10-02] MEDS: NICOTINE 7 MG/24 HOURS TOPICAL PATCH TD SCH (10:01)
[2023-10-02] MEDS: MELATONIN 5 MG TABLETS PO SCH (21:34)
[2023-10-02] MEDS: QUEtiapine FUMARATE 100 MG TABLET (FP) PO SCH (21:35)
[2023-10-02] MEDS: THIAMINE HCL 100 MG TABLET (FP) PO SCH (21:35)
[2023-10-03] MEDS: BRIMONIDINE TARTRATE 0.1% OPHTHALMIC 5 ML BOTTLE OU SCH ×3 (06:40→21:29)
[2023-10-03] MEDS: TIMOLOL 0.5% OPHTHALMIC SOL 5 ML BOTTLE OU SCH ×2 (09:29→21:29)
[2023-10-03] MEDS: DORZOLAMIDE 2% HCL OPHTHALMIC SOLUTION 10 ML BOTTLE OU SCH ×2 (09:29→21:29)
[2023-10-03] MEDS: ESCITALOPRAM OXALATE 20 MG TABLET PO SCH (09:29)
[2023-10-03] MEDS: PRENATAL VITAMINS W/ FOLIC ACID TABLET (FP) PO SCH (09:29)
[2023-10-03] MEDS: NICOTINE 7 MG/24 HOURS TOPICAL PATCH TD SCH (09:30)
[2023-10-03] MEDS: MELATONIN 5 MG TABLETS PO SCH (21:28)
[2023-10-03] MEDS: THIAMINE HCL 100 MG TABLET (FP) PO SCH (21:29)
[2023-10-03] MEDS: QUEtiapine FUMARATE 100 MG TABLET (FP) PO SCH (21:29)
[2023-10-04] MEDS: BRIMONIDINE TARTRATE 0.1% OPHTHALMIC 5 ML BOTTLE OU SCH ×3 (05:58→21:31)
[2023-10-04] MEDS: PRENATAL VITAMINS W/ FOLIC ACID TABLET (FP) PO SCH (09:19)
[2023-10-04] MEDS: ESCITALOPRAM OXALATE 20 MG TABLET PO SCH (09:19)
[2023-10-04] MEDS: TIMOLOL 0.5% OPHTHALMIC SOL 5 ML BOTTLE OU SCH ×2 (09:20→21:31)
[2023-10-04] MEDS: DORZOLAMIDE 2% HCL OPHTHALMIC SOLUTION 10 ML BOTTLE OU SCH ×2 (09:20→21:31)
[2023-10-04] MEDS: NICOTINE 7 MG/24 HOURS TOPICAL PATCH TD SCH (09:20)
[2023-10-04] MEDS: MAG HYDROX/AL HYDROX/SIMETH 30 ML UNIT-DOSE CUP PO PRN (16:39)
[2023-10-04] MEDS: THIAMINE HCL 100 MG TABLET (FP) PO SCH (21:31)
[2023-10-04] MEDS: QUEtiapine FUMARATE 100 MG TABLET (FP) PO SCH (21:31)
[2023-10-04] MEDS: MELATONIN 5 MG TABLETS PO SCH (21:31)
[2023-10-05] MEDS: BRIMONIDINE TARTRATE 0.1% OPHTHALMIC 5 ML BOTTLE OU SCH ×3 (06:29→21:27)
[2023-10-05 07:21] VITALS: RESP 18
[2023-10-05] MEDS: NICOTINE 7 MG/24 HOURS TOPICAL PATCH TD SCH (09:45)
[2023-10-05] MEDS: PRENATAL VITAMINS W/ FOLIC ACID TABLET (FP) PO SCH (09:45)
[2023-10-05] MEDS: ESCITALOPRAM OXALATE 20 MG TABLET PO SCH (09:46)
[2023-10-05] MEDS: TIMOLOL 0.5% OPHTHALMIC SOL 5 ML BOTTLE OU SCH ×2 (09:46→21:27)
[2023-10-05] MEDS: DORZOLAMIDE 2% HCL OPHTHALMIC SOLUTION 10 ML BOTTLE OU SCH ×2 (09:46→21:27)
[2023-10-05] MEDS: MELATONIN 5 MG TABLETS PO SCH (21:26)
[2023-10-05] MEDS: THIAMINE HCL 100 MG TABLET (FP) PO SCH (21:27)
[2023-10-05] MEDS: QUEtiapine FUMARATE 100 MG TABLET (FP) PO SCH (21:27)
[2023-10-06] MEDS: BRIMONIDINE TARTRATE 0.1% OPHTHALMIC 5 ML BOTTLE OU SCH ×3 (06:30→21:27)
[2023-10-06] MEDS: ESCITALOPRAM OXALATE 20 MG TABLET PO SCH (10:03)
[2023-10-06] MEDS: DORZOLAMIDE 2% HCL OPHTHALMIC SOLUTION 10 ML BOTTLE OU SCH ×2 (10:03→21:28)
[2023-10-06] MEDS: TIMOLOL 0.5% OPHTHALMIC SOL 5 ML BOTTLE OU SCH ×2 (10:03→21:28)
[2023-10-06] MEDS: PRENATAL VITAMINS W/ FOLIC ACID TABLET (FP) PO SCH (10:03)
[2023-10-06] MEDS: NICOTINE 7 MG/24 HOURS TOPICAL PATCH TD SCH (10:04)
[2023-10-06] MEDS: MELATONIN 5 MG TABLETS PO SCH (21:28)
[2023-10-06] MEDS: THIAMINE HCL 100 MG TABLET (FP) PO SCH (21:28)
[2023-10-06] MEDS: QUEtiapine FUMARATE 100 MG TABLET (FP) PO SCH (21:28)
[2023-10-07] MEDS: BRIMONIDINE TARTRATE 0.1% OPHTHALMIC 5 ML BOTTLE OU SCH ×3 (06:06→21:27)
[2023-10-07] MEDS: PRENATAL VITAMINS W/ FOLIC ACID TABLET (FP) PO SCH (09:56)
[2023-10-07] MEDS: TIMOLOL 0.5% OPHTHALMIC SOL 5 ML BOTTLE OU SCH ×2 (09:57→21:29)
[2023-10-07] MEDS: NICOTINE 7 MG/24 HOURS TOPICAL PATCH TD SCH (09:57)
[2023-10-07] MEDS: ESCITALOPRAM OXALATE 20 MG TABLET PO SCH (09:57)
[2023-10-07] MEDS: DORZOLAMIDE 2% HCL OPHTHALMIC SOLUTION 10 ML BOTTLE OU SCH ×2 (09:58→21:29)
[2023-10-07] MEDS: QUEtiapine FUMARATE 100 MG TABLET (FP) PO SCH (21:28)
[2023-10-07] MEDS: THIAMINE HCL 100 MG TABLET (FP) PO SCH (21:28)
[2023-10-07] MEDS: MELATONIN 5 MG TABLETS PO SCH (21:28)
[2023-10-08] MEDS: BRIMONIDINE TARTRATE 0.1% OPHTHALMIC 5 ML BOTTLE OU SCH ×3 (06:33→21:05)
[2023-10-08] MEDS: ESCITALOPRAM OXALATE 20 MG TABLET PO SCH (09:44)
[2023-10-08] MEDS: PRENATAL VITAMINS W/ FOLIC ACID TABLET (FP) PO SCH (09:44)
[2023-10-08] MEDS: NICOTINE 7 MG/24 HOURS TOPICAL PATCH TD SCH (09:44)
[2023-10-08] MEDS: TIMOLOL 0.5% OPHTHALMIC SOL 5 ML BOTTLE OU SCH ×2 (09:45→21:03)
[2023-10-08] MEDS: DORZOLAMIDE 2% HCL OPHTHALMIC SOLUTION 10 ML BOTTLE OU SCH ×2 (09:45→21:04)
[2023-10-08] MEDS: QUEtiapine FUMARATE 100 MG TABLET (FP) PO SCH (21:01)
[2023-10-08] MEDS: MELATONIN 5 MG TABLETS PO SCH (21:01)
[2023-10-08] MEDS: THIAMINE HCL 100 MG TABLET (FP) PO SCH (21:02)
[2023-10-09] MEDS: BRIMONIDINE TARTRATE 0.1% OPHTHALMIC 5 ML BOTTLE OU SCH ×3 (06:44→21:27)
[2023-10-09] MEDS: ESCITALOPRAM OXALATE 20 MG TABLET PO SCH (10:10)
[2023-10-09] MEDS: NICOTINE 7 MG/24 HOURS TOPICAL PATCH TD SCH (10:10)
[2023-10-09] MEDS: PRENATAL VITAMINS W/ FOLIC ACID TABLET (FP) PO SCH (10:10)
[2023-10-09] MEDS: DORZOLAMIDE 2% HCL OPHTHALMIC SOLUTION 10 ML BOTTLE OU SCH ×2 (10:10→21:28)
[2023-10-09] MEDS: TIMOLOL 0.5% OPHTHALMIC SOL 5 ML BOTTLE OU SCH ×2 (10:10→21:28)
[2023-10-09] MEDS: hydrOXYzine PAMOATE 25 MG CAPSULE (FP) PO PRN ×2 (10:11→19:16)
[2023-10-09] MEDS: THIAMINE HCL 100 MG TABLET (FP) PO SCH (21:28)
[2023-10-09] MEDS: MELATONIN 5 MG TABLETS PO SCH (21:28)
[2023-10-09] MEDS: QUEtiapine FUMARATE 200 MG TABLET PO SCH (21:30)
[2023-10-10] MEDS: BRIMONIDINE TARTRATE 0.1% OPHTHALMIC 5 ML BOTTLE OU SCH ×3 (06:41→21:23)
[2023-10-10] MEDS: NICOTINE 7 MG/24 HOURS TOPICAL PATCH TD SCH (09:59)
[2023-10-10] MEDS: PRENATAL VITAMINS W/ FOLIC ACID TABLET (FP) PO SCH (09:59)
[2023-10-10] MEDS: hydrOXYzine PAMOATE 25 MG CAPSULE (FP) PO PRN ×2 (09:59→21:24)
[2023-10-10] MEDS: ESCITALOPRAM OXALATE 20 MG TABLET PO SCH (09:59)
[2023-10-10] MEDS: DORZOLAMIDE 2% HCL OPHTHALMIC SOLUTION 10 ML BOTTLE OU SCH ×2 (10:00→21:23)
[2023-10-10] MEDS: TIMOLOL 0.5% OPHTHALMIC SOL 5 ML BOTTLE OU SCH ×2 (10:00→21:23)
[2023-10-10] MEDS: MAG HYDROX/AL HYDROX/SIMETH 30 ML UNIT-DOSE CUP PO PRN (21:23)
[2023-10-10] MEDS: MELATONIN 5 MG TABLETS PO SCH (21:23)
[2023-10-10] MEDS: THIAMINE HCL 100 MG TABLET (FP) PO SCH (21:24)
[2023-10-10] MEDS: QUEtiapine FUMARATE 200 MG TABLET PO SCH (21:24)
[2023-10-11] MEDS: BRIMONIDINE TARTRATE 0.1% OPHTHALMIC 5 ML BOTTLE OU SCH ×3 (07:14→21:27)
[2023-10-11] MEDS: PRENATAL VITAMINS W/ FOLIC ACID TABLET (FP) PO SCH (09:50)
[2023-10-11] MEDS: hydrOXYzine PAMOATE 25 MG CAPSULE (FP) PO PRN ×2 (09:50→21:28)
[2023-10-11] MEDS: DORZOLAMIDE 2% HCL OPHTHALMIC SOLUTION 10 ML BOTTLE OU SCH ×2 (09:50→21:27)
[2023-10-11] MEDS: ESCITALOPRAM OXALATE 20 MG TABLET PO SCH (09:50)
[2023-10-11] MEDS: NICOTINE 7 MG/24 HOURS TOPICAL PATCH TD SCH (09:51)
[2023-10-11] MEDS: TIMOLOL 0.5% OPHTHALMIC SOL 5 ML BOTTLE OU SCH ×2 (09:51→21:27)
[2023-10-11] MEDS: MELATONIN 5 MG TABLETS PO SCH (21:27)
[2023-10-11] MEDS: QUEtiapine FUMARATE 200 MG TABLET PO SCH (21:28)
[2023-10-11] MEDS: THIAMINE HCL 100 MG TABLET (FP) PO SCH (21:28)
[2023-10-12] MEDS: BRIMONIDINE TARTRATE 0.1% OPHTHALMIC 5 ML BOTTLE OU SCH (06:20)
[2023-10-12 07:04] VITALS: BP 121/63; PULSE 74; TEMP 97.3
[2023-10-12] MEDS: PRENATAL VITAMINS W/ FOLIC ACID TABLET (FP) PO SCH (09:41)
[2023-10-12] MEDS: DORZOLAMIDE 2% HCL OPHTHALMIC SOLUTION 10 ML BOTTLE OU SCH (09:41)
[2023-10-12] MEDS: NICOTINE 7 MG/24 HOURS TOPICAL PATCH TD SCH (09:41)
[2023-10-12] MEDS: TIMOLOL 0.5% OPHTHALMIC SOL 5 ML BOTTLE OU SCH (09:41)
[2023-10-12] MEDS: ESCITALOPRAM OXALATE 20 MG TABLET PO SCH (09:43)
[2023-10-12] MEDS ORDERED: QUEtiapine FUMARATE 200 MG TABLET PO SCH (22:00)
== END 2023-10-12 10:27 | disposition home or self-care (01) | DRG 895 ==
LOC: YASAS 12:32 → Y5N 12:33
PROVIDERS: ADMIT Allergy & Immunology; ATTEND Psychiatry & Neurology Pain Medicine
PROC: HZ42ZZZ Group Counseling for Substance Abuse Treatment, Cognitive-Behavioral (ICD-10-PCS; principal; 2023-09-30)
DX: F10.20 Alcohol dependence, uncomplicated (principal); F14.20 Cocaine dependence, uncomplicated; F17.210 Nicotine dependence, cigarettes, uncomplicated; F31.9 Bipolar disorder, unspecified; G47.00 Insomnia, unspecified; H40.1130 Primary open-angle glaucoma, bilateral, stage unspecified
CPT/HCPCS: 36415; 71045-TC-FY; 86803

== ENCOUNTER 2024-03-30 18:05 | Inpatient (IN) | payer OTHER ==
[2024-03-30 19:00] VITALS: BMI 26.4
[2024-03-30] MEDS ORDERED: LOPERAMIDE HCL 2 MG CAPSULE PO PRN (20:05)
[2024-03-30] MEDS ORDERED: ONDANSETRON *ODT* 4 MG TABLET SL PRN (20:05)
[2024-03-30] MEDS ORDERED: BISMUTH SUBSALICYLATE 524 MG/30 ML PO PRN (20:05)
[2024-03-30] MEDS ORDERED: DICYCLOMINE HCL 10 MG CAPSULE PO PRN (20:05)
[2024-03-30] MEDS ORDERED: BENZONATATE 200 MG CAPSULE PO PRN (20:05)
[2024-03-30] MEDS ORDERED: ACETAMINOPHEN 325 MG TABLET (FP) PO PRN (20:05)
[2024-03-30] MEDS ORDERED: NALOXONE HCL 0.4 MG/ML VIAL IM PRN (20:05)
[2024-03-30] MEDS ORDERED: MAG HYDROX/AL HYDROX/SIMETH 30 ML UNIT-DOSE CUP PO PRN (20:05)
[2024-03-30] MEDS ORDERED: MAGNESIUM HYDROX 2400MG/30ML ORAL SUSPENSION 30 ML CUP PO PRN (20:05)
[2024-03-30] MEDS ORDERED: hydrOXYzine PAMOATE 25 MG CAPSULE (FP) PO PRN (20:05)
[2024-03-30] MEDS ORDERED: guaiFENesin 600 MG TABLET.ER (FP) PO PRN (20:05)
[2024-03-30] MEDS ORDERED: NALOXONE (NARCAN) HCL 4 MG/0.1 ML SPRAY NS PRN (20:05)
[2024-03-30] MEDS ORDERED: BENZOCAINE/MENTHOL (CHLORASEPTIC ) LOZENGE MM PRN (20:05)
[2024-03-30] MEDS ORDERED: POLYETHYLENE GLYCOL (HEALTHYLAX) 3350 17 GM PACKET PO PRN (20:05)
[2024-03-30] MEDS ORDERED: IBUPROFEN 600 MG TABLET (FP) PO PRN (20:05)
[2024-03-30] MEDS ORDERED: NICOTINE POLACRILEX 2 MG LOZENGE BC PRN (20:05)
[2024-03-30] MEDS ORDERED: IBUPROFEN 400 MG TABLET (FP) PO PRN (20:05)
[2024-03-31] MEDS: THIAMINE 100 MG TABLET PO SCH (00:23)
[2024-03-31] MEDS: MELATONIN 5 MG TABLETS PO SCH (00:23)
[2024-03-31] MEDS: TIMOLOL 0.5% OPHTHALMIC SOL 5 ML BOTTLE OU SCH (10:36)
[2024-03-31] MEDS: DORZOLAMIDE 2% HCL OPHTHALMIC SOLUTION 10 ML BOTTLE OU SCH (10:36)
[2024-03-31] MEDS ORDERED: NICOTINE 14 MG/24 HOURS TOPICAL PATCH TD ONE (10:36)
[2024-03-31] MEDS ORDERED: PRENATAL VITAMINS W/ FOLIC ACID TABLET (FP) PO ONE (10:37)
[2024-03-31] MEDS: PRENATAL VITAMINS W/ FOLIC ACID TABLET (FP) PO SCH (10:40)
[2024-03-31] MEDS: NICOTINE 14 MG/24 HOURS TOPICAL PATCH TD SCH (10:41)
[2024-03-31 12:03] LABS: CHLORIDE 107 mmol/L (98-107); POTASSIUM 3.8 mmol/L (3.5-5.1); SODIUM 142 mmol/L (136-145)
[2024-03-31 12:04] LABS: HEMATOCRIT 39.3 % (32.4-45.2); HEMOGLOBIN 12.8 GM/dL (10.7-15.3); MCH 24.9 pg (25.7-33.7); MCHC 32.7 g/dl (32.0-36.0); MEAN CELL VOLUME 76.1 fl (80-96); MEAN PLT VOLUME 7.7 fl (7.5-11.1); PLATELET COUNT 243 10^3/uL (134-434); RBC 5.16 M/mm3 (3.60-5.2); RDW 16.2 % (11.6-15.6)
[2024-03-31 12:13] LABS: ALBUMIN 3.6 g/dl (3.4-5.0); ANION GAP 5 mmol/L (4-13); BLOOD UREA NITROGEN 12.4 mg/dL (7-18); CALCIUM 9.2 mg/dL (8.5-10.1); CO2 30 mmol/L (21-32); GLUCOSE,RANDOM 97 mg/dL (74-106)
[2024-03-31 12:16] LABS: CREATININE 0.7 mg/dL (0.55-1.3); SGOT/AST 16 U/L (15-37); SGPT/ALT 23 U/L (13-61)
[2024-03-31 12:18] LABS: BILIRUBIN,TOTAL 0.3 mg/dL (0.2-1); TOT PROT 6.6 g/dl (6.4-8.2)
[2024-03-31 12:20] LABS: ALK PHOS 113 U/L (45-117)
[2024-03-31] MEDS: BRIMONIDINE TARTRATE 0.1% OPHTHALMIC 5 ML BOTTLE OU SCH (14:00)
[2024-03-31] MEDS: DORZOLAMIDE HCL/TIMOLOL OPHTHALMIC SOLUTION 10 ML BOTTLE OU SCH (23:15)
[2024-04-02] MEDS: ESCITALOPRAM OXALATE 10 MG TABLET PO SCH (11:34)
[2024-04-02] MEDS: QUEtiapine FUMARATE 50 MG TABLET PO SCH (23:11)
[2024-04-03 10:13] VITALS: BP 111/79; PULSE 81; RESP 18; TEMP 97.6
== END 2024-04-03 10:48 | disposition home or self-care (01) | DRG 897 ==
LOC: YASAS 18:05 → Y6N 03-31 10:37
PROVIDERS: ADMIT Allergy & Immunology; ATTEND Surgery
PROC: HZ2ZZZZ Detoxification Services for Substance Abuse Treatment (ICD-10-PCS; principal; 2024-03-31)
DX: F10.20 Alcohol dependence, uncomplicated (principal); F14.20 Cocaine dependence, uncomplicated; Z59.01 Sheltered homelessness; F17.210 Nicotine dependence, cigarettes, uncomplicated; F25.1 Schizoaffective disorder, depressive type; F19.24 Other psychoactive substance dependence with psychoactive substance-induced mood disorder; H40.9 Unspecified glaucoma; Z62.810 Personal history of physical and sexual abuse in childhood; Z56.0 Unemployment, unspecified
CPT/HCPCS: 36415; 80053; 80305; 80307; 85027; 86780